=== PATIENT | female | born 1940 | race Caucasian/White ===

== ENCOUNTER 2022-02-02 15:03 | Outpatient (CLI) | payer MEDICARE, BC, SELFPAY ==
--- NOTE | 2022-02-02 15:30 | MR_ITS ---
[address] [address] Phone:?[phone] Fax:?[phone] Referring Physician Information: Maci Reyes [id number] [facility] [address] Phone:?[phone] Fax:?[phone] Patient:Delores Abernathy D.O.B:?1940 Sex:?Female Phone:?[phone] [facility] MRN:?[id number] Exam Date:?02/02/2022 ? EXAM: MRI of the LEFT HIP, without contrast CLINICAL: Left hip pain. Evaluate for fracture. COMPARISONS: X-rays dated 01/19/2022. TECHNICAL: MR sequences of the left hip: Axials: PD FS Axial oblique: PD Coronals: PD, T2 Coronal pelvis: T1 and STIR Sagittals: PD and T2 SEDATION: None. CONTRAST: None. FINDINGS: Hip joint: Small joint effusion is present with mild synovitis. No convincing loose bodies. Small segment of full-thickness chondral loss involves the peripheral superior left hip joint on coronal series 2 images 18-19. Labrum: There is tearing throughout the anterior and anterosuperior labrum, with tearing seen to involve the far superior labrum. No perilabral cyst formation identified. Proximal femur: Impacted fracture is seen to involve the left femoral neck with associated adjacent bone marrow edema. No discrete focal osseous lesion is identified. Acetabulum: No significant subchondral marrow edema, cystic change or fracture. Ligamentum teres: Intact and unremarkable. Pelvis osseous structures: No suspicious marrow signal alteration or fracture line. Changes of arthrosis are seen to involve the inferior sacroiliac joints bilaterally, right greater than left. No evident arthrosis or changes of osteitis pubis at the symphysis pubis. Myotendinous structures: Gluteus abductors: Attenuation/high-grade tearing involves the distal gluteus minimus tendon. Distal gluteus medius tendon appears unremarkable. Adductors: Mild edema within the left adductor musculature is likely reactive to the left femoral neck fracture. No adductor tendon tear is identified. Pre-pubic aponeurotic complex: Intact, without evidence of common rectus abdominis-adductor longus aponeurosis or pubic plate lesion. Hamstrings: Intact semimembranosus, semitendinosus and biceps femoris tendons, without tendinopathy or tear. Flexors: Intact iliopsoas and rectus femoris tendons. There is increased edema within the distal left iliopsoas muscle and within the imaged proximal vastus intermedius muscle likely reactive to the left femoral neck fracture External rotators: Intact. The ischiofemoral and quadratus femoris spaces are within normal limits. Gluteal aponeurotic fascia and IT band: Unremarkable. Bursae: No demonstrable trochanteric or iliopsoas bursitis. Intrapelvic structures: Although evaluation of the intrapelvic structures is limited on this exam, no convincing pelvic mass is identified as visualized. There is apparent mild marrow heterogeneity/edema like signal involving the medial right femoral neck and superior right acetabulum on the coronal STIR sequence. IMPRESSION: 1. Impacted fracture involving the left femoral neck. 2. Tearing throughout the anterior and anterosuperior labrum, with tearing seen to involve the far superior labrum. 3. Small segment of full-thickness chondral loss involving the peripheral superior left hip joint. 4. Attenuation/high-grade tearing involving the distal left gluteus minimus tendon. 5. 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 6. Apparent mild marrow heterogeneity/edema like signal involving the medial femoral neck and superior right acetabulum is nonspecific, recommend follow-up with dedicated right hip MRI for further evaluation. SAMIRA Electronically signed on 02/09/2022 8:03:00 AM by Eleazar Mott D.O.
== END 2022-02-02 15:04 | disposition home or self-care (01) ==
PROVIDERS: PCP Family Medicine; Visit Provider Physician Assistant
DX: M25.552 Pain in left hip (principal); S76.012A Strain of muscle, fascia and tendon of left hip, initial encounter; S73.102A Unspecified sprain of left hip, initial encounter
CPT/HCPCS: 73721

== ENCOUNTER 2022-02-06 10:14 | Outpatient (CLI) | payer MEDICARE, BC, SELFPAY | END 2022-02-06 10:15 | disposition home or self-care (01) | LOC: LAB 10:17 | PROVIDERS: PCP Family Medicine; Visit Provider Orthopaedic Surgery | DX: Z01.818 Encounter for other preprocedural examination (principal) | CPT/HCPCS: 36415; 86850; 86870; 86900; 86901; 86906 ==

== ENCOUNTER 2022-02-08 10:00 | Day surgery (SDC) | payer MEDICARE, BC, SELFPAY ==
[2022-02-08] VITALS (21 sets, daily range): BP systolic 108–175; BP diastolic 46–97; PULSE 44–70; RESP 12–16; TEMP 35.5–37.2; O2SAT 88–100; BMI 33.4
[2022-02-08] MEDS: MIDAZOLAM HCL 1 MG/ML inj IVP (10:30)
[2022-02-08] MEDS: LACTATED RINGERS 1000 ML 1,000 ML 100 ML IV (10:30)
[2022-02-08] MEDS: ACETAMINOPHEN 500 MG TABLET 1000 MG PO ×3 (11:06→23:36)
[2022-02-08] MEDS: SODIUM CHLORIDE 0.9 % (FLUSH) 10 ML SYRINGE IVF (11:07)
[2022-02-08] MEDS: OXYCODONE (CR) 10 MG TAB.ER.12H PO (11:07)
[2022-02-08] MEDS: CELECOXIB 200 MG CAPSULE PO ×2 (11:07→20:13)
--- NOTE | 2022-02-08 13:05 | P.NB_ITS ---
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 Images saved: Yes Medications given in 5ml increments after negative aspiration: Ropivicaine %: 0.5 mL: 30 Needle gauge: 20 Decadron (mg): 10 Precedex (mcg): 25 Patient tolerated procedure well: Yes Additional comments: injected in 5ml increments after negative aspiration Block Charges Block Charge (with Pro Fee): Other Periph Nerve Block Use of Ultrasound Machine for Block: Yes- US Guidance/pain block
[2022-02-08] MEDS: fentaNYL 100 MCG/2 ML inj IVP (13:06)
[2022-02-08] MEDS: SCOPOLAMINE 1 MG/3 DAY PATCH 1 PATCH TRANSDERMA (13:06)
--- NOTE | 2022-02-08 13:07 | SUR.PREOP ---
TIME?OUT:?1255 PT/RN/MDA?VERIFICATION?OF?SURGICAL?SITE Left Hip,?PROCEDURE Nerve Block,?AND?CONSENT OBTAINED?PRIOR?TO?INVASIVE?PROCEDURE.
[2022-02-08] MEDS: TRANEXAMIC ACID 100 MG/ML INJ 1000 MG IV (13:30)
[2022-02-08] MEDS: CEFAZOLIN 2 GM INJ IVP (13:35)
--- NOTE | 2022-02-08 14:30 | CRLHL7_ITS ---
For Patients: As a result of the Cures Act, medical imaging exams and procedure reports are released immediately into your electronic medical record. You may view this report before your referring provider. If you have questions, please contact your health care provider. Indication: Hip replacement surgery Technique: AP hip fluoroscopic images. Fluoroscopy time 31.7 seconds. Findings/Impression: Hardware from a left total hip arthroplasty is in satisfactory position. Dictated by Slick Aviles MD @ 02/09/2022 8:54:46 AM (Electronically Signed)
--- NOTE | 2022-02-08 15:36 | CRLHL7_ITS ---
For Patients: As a result of the Cures Act, medical imaging exams and procedure reports are released immediately into your electronic medical record. You may view this report before your referring provider. If you have questions, please contact your health care provider. Indication: POST OP BIPOLAR HIP Technique: AP hip center pelvis and lateral view left hip Findings/Impression: Hardware from a left hip bipolar arthroplasty is in satisfactory position. Bone alignment is normal. No sign of acute fracture. Postop changes are within normal limits. Dictated by Slick Aviles MD @ 02/09/2022 8:39:41 AM (Electronically Signed)
--- NOTE | 2022-02-08 15:46 | PM.ORPRC ---
Procedure Note Date of procedure: 02/08/22 Procedure: PREOPERATIVE DIAGNOSIS: Left hip occult femoral neck fracture POSTOPERATIVE DIAGNOSIS: Left hip for occult femoral neck fracture NAME OF OPERATION: Left hip cemented bipolar hemiarthroplasty SURGEON: Dayne Winston MD GATHERING WORKER: Keyur Mcdaniel PA-C, Gail Clancy PA-C IMPLANTS: 1. [place] cemented # 6 standard collared cemented stem 2. 28 + 8.5 cobalt chrome femoral head 3. 46 mm bipolar component ANESTHESIA: General ESTIMATED BLOOD LOSS: 600 cc COMPLICATIONS: None SPECIMENS: None DRAINS: None PREOPERATIVE ANTIBIOTICS: Ancef 2 g INDICATIONS: The patient is a 82-year-old with a 6 week history of left hip pain, without history of injury. Workup with x-ray and MRI has diagnosed an occult left femoral neck fracture. Operative intervention was recommended. The risks, benefits and expected outcomes were discussed in detail. These included but were not limited to: Infection, bleeding, injury to blood vessel or nerve, venous thromboembolism. All questions were answered to their satisfaction. Use of an medical assistant float was necessary throughout the case for patient positioning and safety, soft tissue retraction and closure. A modifier 22 is appropriate for this case. The patient's weight of 90 kg and a BMI of 33.4 kg/meter sq as well as having a very tight hip made exposure very difficult. This more than doubled the time typically required to complete the case. PROCEDURE: General anesthesia was administered. The patient was placed supine on the [place] table. General anesthesia was administered. The medical assistant float made sure the patient was properly positioned. The left hip was prepped and draped in the usual sterile fashion. The image intensifier was brought in for a perfect AP pelvis and a perfect double tear drop AP view of each hip which were used for intraoperative templating with our fluoroscopic guide. An oblique incision was made 3 cm distal and 3 cm lateral to the anterior superior iliac spine. The medical assistant float retracted the soft tissues to protect them. Subcutaneous dissection was taken with electrocautery to the superficial fascia. The fascia was divided in line with the incision. Blunt dissection was carried medially to the tensor fascia fernanda and sartorius interval. Deep dissection was carried with electrocautery. The circumflex vessels were cauterized and divided. The capsule was exposed and then divided in a T-fashion, tagged with #1 Ethibond sutures. Retractors were placed in the joint, held by the medical assistant float. The corkscrew was placed in the femoral head. The neck cut was made in the subcapital region. We made a second neck cut more distal. The napkin ring of bone was removed. The femoral head was removed intact. It was sent for gross and microscopic evaluation to rule out malignancy. The limb was placed in 140 degrees of external rotation, maximum extension and adduction. A significant amount of time was spent releasing the capsule to allow us to deliver the femur into the wound and complete the femoral side safely. Retractors were held by the medical assistant float throughout the femoral preparation. The dust box worker and canal finder were used. Broaches were used to a stable size. The calcar reamer was used. Trial components were placed. The hip was reduced and was found to be stable with appropriate soft tissue tension. Length and offset had been nicely restored using the image intensifier and our fluoroscopic guide. Trial components were removed. The cement restrictor was placed. The canal was irrigated with pulse lavage then thoroughly dried. Cement was placed with the cement gun and hand pressurized. The # 6 [place] cemented stem was placed in the canal. The 28 mm + 8.5 cobalt chrome femoral head and the 46 mm bipolar component were placed. The hip was reduced and again was found to be stable with appropriate soft tissue tension. Leg lengths appear equal. The medical assistant float irrigated the wound with 3 liters of normal saline via pulse lavage. The medical assistant float repaired the anterior capsule with a #1 Vicryl and our previously placed Ethibond sutures. The medical assistant float closed the fascia over the tensor fascia fernanda with a #1 PDO Stratafix, subcutaneous tissues with 2-0 Vicryl, skin with a running 3-0 Stratafix and glue. A dry dressing was applied by the medical assistant float. Sponge and needle counts were correct x 2. The patient tolerated the procedure well; there were no apparent complications. They were awakened and extubated in the operating room, sent to the Post-Anesthesia Care Unit in satisfactory condition. PLAN: 1. The patient will be mobilized with physical therapy, weight-bearing as tolerates 2. Xarelto x 5 days then aspirin x 30 days will be used for DVT prophylaxis 3. The patient will be discharged once medically appropriate
--- NOTE | 2022-02-08 16:51 | W.ANESCHARGE ---
Anesthesia Charges Start Date/Time Anesthesia Start Date: 02/08/22 Anesthesia Start Time: 13:20 Stop Date/Time Anesthesia Stop Date: 02/08/22 Anesthesia Stop Time: 16:40 Summary Emergency: No Extremes of Age: Over 70-CPT [id number]
[2022-02-08] MEDS: CARBOXYMETHYLCELLULOSE (REFRESH PLUS) TEARS 1 DROP EYE-BOTH (17:45)
[2022-02-08] MEDS: OXYCODONE 5 MG TABLET PO (18:32)
--- NOTE | 2022-02-08 19:04 | PC.NURSE ---
End of Shift: Patient pleasant and cooperative, arrived to the floor about 1700. Patient vitally stable, lungs clear, BS WNL, IV running LR at 75. Patient used bedpan as patient was urinating self in bed. Patient rates pain at most 3/10, scheduled tylenol given and 5mg of oxy. Patient currently on 0.5L of o2 as sats drop into the 80's when patient falls asleep. Patient has taken ice chips, water, and apple sauce. Left hip dressing C/D/I.
[2022-02-08] MEDS: CEFAZOLIN 2 GM in 0.9 % SODIUM CHLORIDE Mini-bag 100 ML IVPB (19:57)
[2022-02-08] MEDS: LACTATED RINGERS 1000 ML 1,000 ML 75 ML IV (19:57)
[2022-02-08] MEDS: SODIUM CHLORIDE 0.9 % (FLUSH) 10 ML SYRINGE 5 ML IVF (20:13)
[2022-02-08] MEDS: SENNOSIDES 1 TAB TABLET 2 TAB PO (21:31)
[2022-02-09] MEDS: OXYCODONE 5 MG TABLET PO ×2 (01:23→09:19)
[2022-02-09 03:00] VITALS: BP 133/72; PULSE 62; RESP 14; TEMP 36.3; O2SAT 94
[2022-02-09] MEDS: CEFAZOLIN 2 GM in 0.9 % SODIUM CHLORIDE Mini-bag 100 ML IVPB ×2 (03:34→11:05)
--- NOTE | 2022-02-09 05:17 | PC.NURSE ---
[id number]. Pt alert and oriented x3, pleasant and cooperative. Pt reports 0-4/10 throughout shift, pain managed with PRN and scheduled medications. Dressing to left hip CDI. Active ice to site throughout shift. Pt had bardcardic episode of 44 bpm, complained of light headedness and dizziness upon return from ambulating to?bathroom and back, bp 122/63, 02 sats 98%. Laid pt down, once symptoms improved pt ate food, HR >60 for remainder of shift. Pt up with A1 with gait belt and walker. Pt denies N/V, chest pain and SOB.
[2022-02-09] MEDS: ACETAMINOPHEN 500 MG TABLET 1000 MG PO (05:43)
[2022-02-09 07:00] VITALS: BP 118/61; PULSE 67; RESP 18; TEMP 36.8; O2SAT 97
[2022-02-09 07:01] LABS: Basophils Absolute Auto 0.01 K/uL (0.00-0.30); Basophils Percent Auto 0.1 % (0.0-3.0); Hematocrit 35.5 % (33.0-51.0); Hemoglobin* 11.7 gm/dL (12.0-16.0); Immature Granulocytes Abs Auto 0.01 K/uL (0.00-0.30); Immature Granulocytes Pct Auto 0.1 %; Lymphocytes Percent Auto 10.6 % (20-44); Mean Corpuscular HGB Conc 33 gm/dL (32-36); Mean Corpuscular Hemoglobin 32 pg (26-34); Mean Corpuscular Volume 97 fL (80-100); Monocytes Percent Auto 5.1 % (0.0-11.0); Neutrophils Percent Auto 84.1 % (42.0-72.0); Platelet Count* 259 K/uL (140-440); RDW Coefficient of Variation % 12.1 % (11.5-15.5); Red Blood Count 3.68 m/uL (4.00-5.20); White Blood Count* 9.24 K/uL (4.50-11.00)
[2022-02-09 07:12] LABS: Potassium* 4.6 mmol/L (3.6-5.1); Slide Review Reflex No; Sodium* 135 mmol/L (135-149)
[2022-02-09 07:15] LABS: Blood Urea Nitrogen* 23 mg/dL (7-30); Creatinine* 0.8 mg/dL (0.5-1.5); Est. Creatinine Clearance* 37.45; Estimated Glomerular Filt Rate 74 ml/min
[2022-02-09] MEDS: CELECOXIB 200 MG CAPSULE PO (09:18)
[2022-02-09] MEDS: SENNOSIDES 1 TAB TABLET 2 TAB PO (09:18)
[2022-02-09] MEDS: RIVAROXABAN 10 MG TABLET PO (09:19)
[2022-02-09] MEDS: SODIUM CHLORIDE 0.9 % (FLUSH) 10 ML SYRINGE 5 ML IVF (09:20)
--- NOTE | 2022-02-09 09:36 | P.ORPN_ITS ---
Subjective Subjective Time Seen by Provider: 07:40 Date Seen: 02/09/22 Principal diagnosis: Status post left hip bipolar prosthesis for left hip femoral neck fracture. Interval history: Date of surgery 02/08/2022 Amirah is comfortable this morning at rest in the recliner. She will be discharging today to home with her Jigar. Ortho Exam Narrative Exam Narrative: Alert and oriented x3. Patient is in no acute distress. Converses without labored breathing. Hearing is grossly intact. Ambulates with a walker. Examination of left lower extremity shows the dressing is in place. Very mild soft tissue edema about the left hip. No ecchymosis. Dressing is intact. CMS is intact left lower extremity. Bilateral calves are soft and nontender. Const Vital Signs, click to edit/add: Vital Signs - 24 hr 02/08/22 10:46 02/08/22 13:07 02/08/22 16:36 Temperature 98.9 F 97.1 F L Pulse Rate 62 59 L 63 Pulse Rate [Left Pulse Oximeter] Respiratory Rate 16 16 16 Blood Pressure 139/71 151/76 H 147/81 H Blood Pressure [Right Arm] Pulse Oximetry 97 100 99 Oxygen Delivery Method Room Air Nasal Cannula Nasal Cannula Oxygen Flow Rate 2 3 02/08/22 17:11 02/08/22 16:40 02/08/22 16:45 Temperature 97.2 F L Pulse Rate 52 L 61 53 L Pulse Rate [Left Pulse Oximeter] Respiratory Rate 14 12 12 Blood Pressure 132/74 142/46 H 151/79 H Blood Pressure [Right Arm] Pulse Oximetry 96 95 94 Oxygen Delivery Method Room Air Nasal Cannula Nasal Cannula Oxygen Flow Rate 3 3 02/08/22 16:50 02/08/22 16:55 02/08/22 17:00 Temperature 97.2 F L Pulse Rate 54 L 59 L 59 L Pulse Rate [Left Pulse Oximeter] Respiratory Rate 12 12 14 Blood Pressure 147/94 H 157/74 H 149/87 H Blood Pressure [Right Arm] Pulse Oximetry 95 96 97 Oxygen Delivery Method Nasal Cannula OxyMask Blow By Oxygen Flow Rate 3 10 10 02/08/22 17:05 02/08/22 17:19 02/08/22 17:30 Temperature 96.3 F L 96.8 F L Pulse Rate 62 56 L Pulse Rate [Left Pulse Oximeter] 51 L Respiratory Rate 14 12 12 Blood Pressure 139/86 Blood Pressure [Right Arm] 150/74 H 147/74 H Pulse Oximetry 94 97 Oxygen Delivery Method Room Air Room Air Room Air Oxygen Flow Rate 02/08/22 17:45 02/08/22 18:00 02/08/22 18:15 Temperature 97 F L 96 F L 96.7 F L Pulse Rate Pulse Rate [Left Pulse Oximeter] 55 L 44 L 63 Respiratory Rate 12 12 12 Blood Pressure Blood Pressure [Right Arm] 149/76 H 138/65 175/93 H Pulse Oximetry 94 88 95 Oxygen Delivery Method Room Air Room Air Room Air Oxygen Flow Rate 02/08/22 18:45 02/08/22 19:15 02/08/22 23:00 Temperature 97 F L 97.5 F L 96.7 F L Pulse Rate Pulse Rate [Left Pulse Oximeter] 60 60 66 Respiratory Rate 12 14 14 Blood Pressure Blood Pressure [Right Arm] 151/66 H 131/58 L 108/97 H Pulse Oximetry 92 94 93 Oxygen Delivery Method Room Air Room Air Room Air Oxygen Flow Rate 02/08/22 20:15 02/08/22 21:15 02/08/22 22:15 Temperature 97.5 F L 96.9 F L 96.7 F L Pulse Rate Pulse Rate [Left Pulse Oximeter] 70 53 L 66 Respiratory Rate 16 14 14 Blood Pressure Blood Pressure [Right Arm] 129/70 122/63 108/97 H Pulse Oximetry 96 96 93 Oxygen Delivery Method Room Air Room Air Room Air Oxygen Flow Rate 02/09/22 03:00 02/09/22 07:00 Temperature 97.4 F L 98.3 F Pulse Rate Pulse Rate [Left Pulse Oximeter] 62 67 Respiratory Rate 14 18 Blood Pressure Blood Pressure [Right Arm] 133/72 118/61 Pulse Oximetry 94 97 Oxygen Delivery Method Room Air Room Air Oxygen Flow Rate Assessment and Plan Assessment and plan (1) Closed left hip fracture: Status: Acute (2) History of hemiarthroplasty of left hip: Status: Acute Plan Plan for discharge is today to home if they meet discharge criteria. DVT prophylaxis includes Xarelto 10 mg daily for total of 5 days, then aspirin 81 mg twice daily for 30 days, Surinder stockings x1 month may remove for 1 hr per day, frequent ambulation Remove dressing 1 week. Observe wound and phone Orthopedics with any questions or concerns Use Ice on operative hip unrestricted. Return to clinic in 1 week with PA for a wound check Return to clinic in [address] Winston Minimize narcotic use. Wean off and discontinue soon as possible. Activities as tolerated. No strenuous activity. Attend outpt PT at [facility].
[2022-02-09 11:00] VITALS: PULSE 68; RESP 18; O2SAT 95
[2022-02-09 11:18] VITALS: BP 132/74; PULSE 56; RESP 18; TEMP 36.8
--- NOTE | 2022-02-09 16:26 | PC.NURSE ---
Please see eMar for medications provided to pt. Eval by Gail pena PA, PT and OT. Pt & spouse verbalized understanding of d/c diagnosis, home meds, pain management plan, f/up appt and sx to report urgently to physician. Discharged via w/c @ 12:38pm with personal belongings to own home with spouse as transporter.
== END 2022-02-09 12:38 | disposition home or self-care (01) ==
LOC: OR 10:03 → MEDSURG 10:05
PROVIDERS: PCP Family Medicine; Visit Provider Orthopaedic Surgery
PROC: (CPT 27130; principal; 2022-02-08 14:30)
DX: S72.002A Fracture of unspecified part of neck of left femur, initial encounter for closed fracture (principal); Z68.33 Body mass index [BMI] 33.0-33.9, adult
CPT/HCPCS: 27236; 01214; 36415; 64450; 73501; 76000; 76942; 82565; 84132; 84295; 84520; 85025; 88304; 88311; 88341; 88342; 97110; 97116; 97161; 97165; 97535; 99100; A9270; C1776; J0330; J0690; J1100; J2250; J2405; J2704; J2710; J2795; J3010; J7120